=== PATIENT | female | born 1940 | race Caucasian/White ===

== ENCOUNTER 2018-05-18 11:34 | Outpatient (REF) | payer MEDICARE, SELFPAY ==
[2018-05-18 23:13] LABS: TSH (W/Ref FT4) 1.32 uIU/mL (0.358-3.74)
== END 2018-05-18 11:54 ==
LOC: NCHCN 11:34
PROVIDERS: PCP Family Medicine; Visit Provider Family Medicine
DX: E03.9 Hypothyroidism, unspecified (principal)
CPT/HCPCS: 84443

== ENCOUNTER 2019-02-28 11:14 | Outpatient (REF) | payer MEDICARE, SELFPAY ==
[2019-02-28 21:55] LABS: Calculated LDL 156; Cholesterol 239 mg/dL (50-200); HDL Cholesterol 34 mg/dL (40-60); Triglyceride 245 mg/dL (30-150)
== END 2019-02-28 11:34 ==
LOC: NCHCN 11:14
PROVIDERS: PCP Family Medicine; Visit Provider Family Medicine
DX: E78.5 Hyperlipidemia, unspecified (principal)
CPT/HCPCS: 80061; 83721

== ENCOUNTER 2019-10-06 13:00 | Outpatient (REF) | payer MEDICARE, SELFPAY ==
[2019-10-06 20:38] LABS: BUN 14 mg/dL (7-18); CREATININE 0.88 mg/dL (0.55-1.02); Calcium 9.1 mg/dL (8.5-10.1); Chloride 104 mmol/L (98-107); Glucose 74 mg/dL (74-106); Sodium 142 mmol/L (136-145); TSH 2.72 uIU/mL (0.36-3.74)
== END 2019-10-06 13:20 ==
LOC: NCHCN 13:00
PROVIDERS: PCP Family Medicine; Visit Provider Family Medicine
DX: E03.9 Hypothyroidism, unspecified (principal); I10 Essential (primary) hypertension
CPT/HCPCS: 80048; 84443

== ENCOUNTER 2020-11-06 22:32 | Outpatient (REF) | payer MEDICARE, OTHER, SELFPAY ==
[2020-11-06 22:23] LABS: BUN 20 mg/dL (7-18); Calcium 9.3 mg/dL (8.5-10.1); Calculated LDL 153 mg/dL (<100); Chloride 102 mmol/L (98-107); Cholesterol 237 mg/dL (<200); Estimated GFR 53.62 (mL/min/1.73m2); Glucose 86 mg/dL (74-106); HDL Cholesterol 33 mg/dL (40-60); Potassium 4.3 mmol/L (3.5-5.1); Sodium 141 mmol/L (136-145); TSH 3.08 uIU/mL (0.36-3.74); Triglyceride 259 mg/dL (<150)
== END 2020-11-06 22:33 | disposition home or self-care (01) ==
LOC: NCHCN 22:32
PROVIDERS: PCP Family Medicine; Visit Provider Internal Medicine
DX: E03.9 Hypothyroidism, unspecified (principal)
CPT/HCPCS: 80048; 80061; 84443

== ENCOUNTER 2021-03-27 16:11 | Outpatient (REF) | payer MEDICARE, OTHER, SELFPAY | END 2021-03-27 16:12 | disposition home or self-care (01) | LOC: NCHCN 16:11 | PROVIDERS: PCP Family Medicine; Visit Provider Nurse Practitioner Family | DX: R31.9 Hematuria, unspecified (principal) | CPT/HCPCS: 87086 ==

== ENCOUNTER 2022-02-24 10:11 | Outpatient (REF) | payer MEDICARE, OTHER, SELFPAY ==
[2022-02-24 15:42] LABS: TSH (W/Ref FT4) 1.84 uIU/mL (0.36-3.74)
== END 2022-02-24 10:12 | disposition home or self-care (01) ==
LOC: NCHCN 10:11
PROVIDERS: PCP Family Medicine; Visit Provider Nurse Practitioner Family
DX: E03.9 Hypothyroidism, unspecified (principal)
CPT/HCPCS: 84443

== ENCOUNTER 2022-12-21 12:53 | Outpatient (REF) | payer MEDICARE, SELFPAY ==
[2022-12-21 14:28] LABS: Abs Immature Grans 0.03 10^3/uL (0.0-0.06); Absolute Basophil Count 0.03 10^3/uL (0.0-0.2); Absolute Eosinophil Count 0.07 10^3/uL (0.0-0.7); Absolute Lymphocyte Count 1.47 10^3/uL (1.2-3.4); Absolute Monocyte Count 0.64 10^3/uL (0.1-0.8); Absolute Neutrophil Count 5.45 10^3/uL (1.2-6.7); Basophils % 0.4; Eosinophils % 0.9; HGB 13.3 g/dL (11.2-15.7); Immature Grans % 0.4; Lymphocytes % 19.1; MCH 30.6 pg (27.0-33.0); MCHC 32.4 % (32.0-36.0); MCV 94 fL (80-95); MPV 9.8 fL (8.0-11.0); Monocytes % 8.3; Neutrophils % 70.9; Platelet Count 195 10^3/uL (130-400); RBC 4.35 10^6/uL (3.93-5.22); RDW 12.1 % (11.7-14.6); RDW-SD 42.4 fL; WBC 7.69 10^3/uL (4.4-10.8)
[2022-12-21 14:36] LABS: ESR 17 mm/hr (0-30)
[2022-12-21 15:24] LABS: ALT 21 U/L (14-59); AST 23 U/L (15-37); Albumin 3.7 g/dL (3.4-5.0); Alkaline Phosphatase 91 U/L (46-116); Anion Gap 9.1 mmol/L (3-11); BUN 18 mg/dL (7-18); Bilirubin, Total 0.4 mg/dL (0.2-1.0); CO2 27.9 mmol/L (21.0-32.0); CREATININE 1.1 mg/dL (0.55-1.02); Calcium 9.2 mg/dL (8.5-10.1); Chloride 104 mmol/L (98-107); Glucose 117 mg/dL (74-106); Potassium 3.9 mmol/L (3.5-5.1); Sodium 141 mmol/L (136-145); TSH 2.79 uIU/mL (0.36-3.74); Total Protein 7.6 g/dL (6.4-8.2); Vitamin B12 524 pg/mL (193-986)
[2022-12-21 15:33] LABS: C-Reactive Protein 1.95 mg/dL (0.0-0.3)
== END 2022-12-21 12:54 | disposition home or self-care (01) ==
LOC: NCHCN 12:53
PROVIDERS: PCP Family Medicine; Visit Provider Internal Medicine
DX: G44.209 Tension-type headache, unspecified, not intractable (principal); I48.92 Unspecified atrial flutter; E03.9 Hypothyroidism, unspecified
CPT/HCPCS: 80053; 85652; 82607; 84443; 85025; 86140

== ENCOUNTER 2023-01-25 21:13 | Outpatient (REF) | payer MEDICARE, SELFPAY ==
[2023-01-25 15:15] LABS: ESR < 1 mm/hr (0-30)
== END 2023-01-25 21:14 | disposition home or self-care (01) ==
LOC: NCHCN 21:13
PROVIDERS: PCP Family Medicine; Visit Provider Internal Medicine
DX: M31.6 Other giant cell arteritis (principal)
CPT/HCPCS: 85652; 86140

== ENCOUNTER 2023-02-03 15:02 | Outpatient (REF) | payer MEDICARE, SELFPAY | END 2023-02-03 15:03 | disposition home or self-care (01) | LOC: NCHCN 15:02 | PROVIDERS: PCP Family Medicine; Visit Provider Internal Medicine | DX: R30.0 Dysuria (principal) | CPT/HCPCS: 87086 ==

== ENCOUNTER 2023-03-12 13:57 | Outpatient (REF) | payer MEDICARE, SELFPAY ==
[2023-03-12 21:09] LABS: ESR 6 mm/hr (0-30)
[2023-03-12 21:22] LABS: C-Reactive Protein 0.38 mg/dL (0.0-0.3)
== END 2023-03-12 13:58 | disposition home or self-care (01) ==
LOC: NCHCN 13:57
PROVIDERS: PCP Family Medicine; Visit Provider Internal Medicine
DX: M31.6 Other giant cell arteritis (principal)
CPT/HCPCS: 85652; 86140

== ENCOUNTER 2023-03-26 15:12 | Outpatient (REF) | payer MEDICARE, SELFPAY ==
[2023-03-26 14:44] LABS: HCT 33.9 % (36.0-46.0); HGB 11.2 g/dL (11.2-15.7); MCH 31.9 pg (27.0-33.0); MCV 97 fL (80-95); MPV 10.2 fL (8.0-11.0); Platelet Count 139 10^3/uL (130-400); RBC 3.51 10^6/uL (3.93-5.22); RDW 17.2 % (11.7-14.6); RDW-SD 59.8 fL; WBC 11.69 10^3/uL (4.4-10.8)
[2023-03-26 14:47] LABS: ESR 2 mm/hr (0-30)
[2023-03-26 15:19] LABS: C-Reactive Protein < 0.05 mg/dL (0.0-0.3)
[2023-03-26 15:46] LABS: Vitamin D 25 Total 24.6 ng/mL (30-100)
== END 2023-03-26 15:13 | disposition home or self-care (01) ==
LOC: NCHCN 15:12
PROVIDERS: PCP Family Medicine; Visit Provider Internal Medicine
DX: M31.6 Other giant cell arteritis (principal); M85.88 Other specified disorders of bone density and structure, other site
CPT/HCPCS: 82306; 85027; 85652; 86140

== ENCOUNTER 2023-04-16 10:49 | Outpatient (REF) | payer MEDICARE, SELFPAY ==
[2023-04-16 15:14] LABS: HCT 35.6 % (36.0-46.0); HGB 12.2 g/dL (11.2-15.7); MCH 33.7 pg (27.0-33.0); MCHC 34.3 % (32.0-36.0); MCV 98 fL (80-95); MPV 10.1 fL (8.0-11.0); Platelet Count 139 10^3/uL (130-400); RBC 3.62 10^6/uL (3.93-5.22); RDW 16.2 % (11.7-14.6); RDW-SD 58.6 fL; WBC 11.88 10^3/uL (4.4-10.8)
[2023-04-16 15:28] LABS: ESR 6 mm/hr (0-30)
[2023-04-16 15:35] LABS: C-Reactive Protein 0.18 mg/dL (0.0-0.3)
== END 2023-04-16 10:50 | disposition home or self-care (01) ==
LOC: NCHCN 10:49
PROVIDERS: PCP Family Medicine; Visit Provider Internal Medicine
DX: M31.6 Other giant cell arteritis (principal)
CPT/HCPCS: 85027; 85652; 86140

== ENCOUNTER 2023-05-18 18:21 | Outpatient (REF) | payer SELFPAY ==
[2023-05-18 15:46] LABS: Abs Immature Grans 0.72 10^3/uL (0.0-0.06); Absolute Lymphocyte Count 1.29 10^3/uL (1.2-3.4); Absolute Neutrophil Count 13.72 10^3/uL (1.2-6.7); Basophils % 0.2; HCT 31.1 % (36.0-46.0); HGB 9.7 g/dL (11.2-15.7); Immature Grans % 4.3; Lymphocytes % 7.7; MCH 33.1 pg (27.0-33.0); MCHC 31.2 % (32.0-36.0); MCV 106 fL (80-95); MPV 9.2 fL (8.0-11.0); Monocytes % 5.9; Neutrophils % 81.9; Nucleated RBC 0.4 % (0.0-0.3); Platelet Count 205 10^3/uL (130-400); RBC 2.93 10^6/uL (3.93-5.22); RDW 16.1 % (11.7-14.6); RDW-SD 62.9 fL; WBC 16.75 10^3/uL (4.4-10.8)
[2023-05-18 16:40] LABS: Absolute Basophil Count 0.03 10^3/uL (0.0-0.2); Absolute Monocyte Count 0.99 10^3/uL (0.1-0.8); ESR 2 mm/hr (0-30)
[2023-05-18 17:00] LABS: Anisocytosis 1+; Diff Comment Diff Reviewed; Macrocytosis 1+
[2023-05-18 17:26] LABS: ALT 47 U/L (14-59); AST 23 U/L (15-37); Albumin 3.1 g/dL (3.4-5.0); Alkaline Phosphatase 97 U/L (46-116); Anion Gap 8.6 mmol/L (3-11); BUN 34 mg/dL (7-18); Bilirubin, Total 0.3 mg/dL (0.2-1.0); C-Reactive Protein 0.14 mg/dL (0.0-0.3); CO2 25.4 mmol/L (21.0-32.0); CREATININE 1.3 mg/dL (0.55-1.02); Calcium 8.5 mg/dL (8.5-10.1); Chloride 104 mmol/L (98-107); Estimated GFR 41.57 (mL/min/1.73m2); Glucose 121 mg/dL (74-106); Potassium 4.2 mmol/L (3.5-5.1); Sodium 138 mmol/L (136-145); TSH 2.39 uIU/mL (0.36-3.74); Total Protein 5.6 g/dL (6.4-8.2)
== END 2023-05-18 18:22 | disposition home or self-care (01) ==
LOC: LBN 18:21
PROVIDERS: PCP Family Medicine; Visit Provider Internal Medicine
DX: M31.6 Other giant cell arteritis (principal); R62.7 Adult failure to thrive; E03.9 Hypothyroidism, unspecified; I48.91 Unspecified atrial fibrillation; G04.90 Encephalitis and encephalomyelitis, unspecified; I10 Essential (primary) hypertension
CPT/HCPCS: 80053; 85652; 84443; 85025; 86140

== ENCOUNTER 2023-05-27 15:49 | Outpatient (REF) | payer SELFPAY ==
[2023-05-27 16:29] LABS: C-Reactive Protein 0.15 mg/dL (0.0-0.3); TSH 3.13 uIU/mL (0.36-3.74)
[2023-05-27 16:35] LABS: ESR < 1 mm/hr (0-30)
== END 2023-05-27 15:50 | disposition home or self-care (01) ==
LOC: LBN 15:49
PROVIDERS: PCP Family Medicine; Visit Provider Internal Medicine
DX: E03.9 Hypothyroidism, unspecified (principal); I48.91 Unspecified atrial fibrillation; R62.7 Adult failure to thrive; M31.6 Other giant cell arteritis
CPT/HCPCS: 85652; 84443; 86140

== ENCOUNTER 2023-06-14 21:59 | Outpatient (REF) | payer MEDICARE, SELFPAY ==
[2023-06-15 01:20] LABS: Abs Immature Grans 0.23 10^3/uL (0.0-0.06); Absolute Basophil Count 0.04 10^3/uL (0.0-0.2); Absolute Eosinophil Count 0.02 10^3/uL (0.0-0.7); Absolute Lymphocyte Count 1.55 10^3/uL (1.2-3.4); Absolute Monocyte Count 0.65 10^3/uL (0.1-0.8); Basophils % 0.8; Eosinophils % 0.4; HCT 37.8 % (36.0-46.0); HGB 12.4 g/dL (11.2-15.7); Immature Grans % 4.3; Lymphocytes % 29.3; MCH 34.6 pg (27.0-33.0); MCHC 32.8 % (32.0-36.0); MCV 106 fL (80-95); MPV 11.3 fL (8.0-11.0); Monocytes % 12.3; Neutrophils % 52.9; Nucleated RBC 0.9 % (0.0-0.3); Platelet Count 131 10^3/uL (130-400); RBC 3.58 10^6/uL (3.93-5.22); RDW 14.5 % (11.7-14.6); RDW-SD 57.1 fL; WBC 5.29 10^3/uL (4.4-10.8)
[2023-06-15 01:29] LABS: C-Reactive Protein 0.11 mg/dL (0.0-0.3)
[2023-06-15 01:43] LABS: Diff Comment RBC Morph Reviewed; Macrocytosis 2+
[2023-06-15 01:49] LABS: Polychromasia Present
[2023-06-15 10:53] LABS: ESR (LRH) 1 mm/hr
== END 2023-06-14 22:00 | disposition home or self-care (01) ==
LOC: NCHCN 21:59
PROVIDERS: PCP Family Medicine; Visit Provider Internal Medicine
DX: M31.6 Other giant cell arteritis (principal); I10 Essential (primary) hypertension; E03.9 Hypothyroidism, unspecified
CPT/HCPCS: 85652; 85025; 86140

== ENCOUNTER 2023-06-29 15:26 | Outpatient (REF) | payer MEDICARE, SELFPAY ==
[2023-06-29 16:03] LABS: HCT 34.9 % (36.0-46.0); HGB 11.4 g/dL (11.2-15.7); MCH 33.1 pg (27.0-33.0); MCHC 32.7 % (32.0-36.0); MCV 102 fL (80-95); MPV 9.6 fL (8.0-11.0); Platelet Count 103 10^3/uL (130-400); RBC 3.44 10^6/uL (3.93-5.22); RDW 14.5 % (11.7-14.6); RDW-SD 53.6 fL; WBC 2.77 10^3/uL (4.4-10.8)
[2023-06-29 16:19] LABS: C-Reactive Protein < 0.05 mg/dL (0.0-0.3)
[2023-06-29 16:51] LABS: Absolute Eosinophil Count 0.03 10^3/uL (0.0-0.7); Absolute Lymphocyte Count 1.16 10^3/uL (1.2-3.4); Absolute Monocyte Count 0.55 10^3/uL (0.1-0.8); Absolute Neutrophil Count 0.97 10^3/uL (1.2-6.7); Atypical Lymphocytes % 7
[2023-06-29 16:52] LABS: Diff Comment Manual Differential; Macrocytosis 1+; Myelocytes % 2
[2023-06-30 13:55] LABS: ESR (LRH) < 1 mm/hr
== END 2023-06-29 15:27 | disposition home or self-care (01) ==
LOC: LBN 15:26
PROVIDERS: PCP Family Medicine; Visit Provider Internal Medicine
DX: M31.6 Other giant cell arteritis (principal)
CPT/HCPCS: 85652; 85025; 86140

== ENCOUNTER 2023-07-12 14:39 | Outpatient (REF) | payer SELFPAY ==
[2023-07-12 15:46] LABS: Abs Immature Grans 0.17 10^3/uL (0.0-0.06); Absolute Basophil Count 0.04 10^3/uL (0.0-0.2); Absolute Eosinophil Count 0.08 10^3/uL (0.0-0.7); Absolute Lymphocyte Count 1.43 10^3/uL (1.2-3.4); Absolute Monocyte Count 0.56 10^3/uL (0.1-0.8); Absolute Neutrophil Count 1.12 10^3/uL (1.2-6.7); Basophils % 1.2; Eosinophils % 2.4; HCT 37.6 % (36.0-46.0); HGB 12.3 g/dL (11.2-15.7); Lymphocytes % 42.1; MCH 33.5 pg (27.0-33.0); MCHC 32.7 % (32.0-36.0); MCV 103 fL (80-95); MPV 10.3 fL (8.0-11.0); Monocytes % 16.5; Neutrophils % 32.8; Nucleated RBC 0.6 % (0.0-0.3); Platelet Count 117 10^3/uL (130-400); RBC 3.67 10^6/uL (3.93-5.22); RDW 14.9 % (11.7-14.6); RDW-SD 56.2 fL
[2023-07-12 15:53] LABS: ESR < 1 mm/hr (0-30)
== END 2023-07-12 14:40 | disposition home or self-care (01) ==
LOC: NCHCN 14:39
PROVIDERS: PCP Family Medicine; Visit Provider Internal Medicine
DX: M31.6 Other giant cell arteritis (principal); G04.90 Encephalitis and encephalomyelitis, unspecified
CPT/HCPCS: 85652; 85025

== ENCOUNTER 2023-07-27 15:20 | Outpatient (REF) | payer SELFPAY ==
[2023-07-27 16:25] LABS: Abs Immature Grans 0.06 10^3/uL (0.0-0.06); Absolute Basophil Count 0.03 10^3/uL (0.0-0.2); Absolute Eosinophil Count 0.05 10^3/uL (0.0-0.7); Absolute Lymphocyte Count 1.21 10^3/uL (1.2-3.4); Absolute Monocyte Count 0.58 10^3/uL (0.1-0.8); Absolute Neutrophil Count 1.63 10^3/uL (1.2-6.7); Basophils % 0.8; Eosinophils % 1.4; HGB 10.8 g/dL (11.2-15.7); Immature Grans % 1.7; MCH 33.3 pg (27.0-33.0); MCHC 31.8 % (32.0-36.0); MCV 105 fL (80-95); MPV 9.4 fL (8.0-11.0); Monocytes % 16.3; Neutrophils % 45.8; Platelet Count 107 10^3/uL (130-400); RBC 3.24 10^6/uL (3.93-5.22); RDW-SD 57.8 fL; WBC 3.56 10^3/uL (4.4-10.8)
[2023-07-27 16:37] LABS: C-Reactive Protein < 0.05 mg/dL (0.0-0.3)
[2023-07-27 16:40] LABS: ESR < 1 mm/hr (0-30)
== END 2023-07-27 15:21 | disposition home or self-care (01) ==
LOC: LBN 15:20
PROVIDERS: PCP Family Medicine; Visit Provider Internal Medicine
DX: M31.6 Other giant cell arteritis (principal); G04.90 Encephalitis and encephalomyelitis, unspecified
CPT/HCPCS: 85652; 85025; 86140

== ENCOUNTER 2023-08-10 17:47 | Outpatient (REF) | payer SELFPAY ==
[2023-08-10 15:06] LABS: Abs Immature Grans 0.04 10^3/uL (0.0-0.06); Absolute Basophil Count 0.03 10^3/uL (0.0-0.2); Absolute Eosinophil Count 0.04 10^3/uL (0.0-0.7); Absolute Lymphocyte Count 0.71 10^3/uL (1.2-3.4); Absolute Monocyte Count 0.39 10^3/uL (0.1-0.8); Absolute Neutrophil Count 2.61 10^3/uL (1.2-6.7); Basophils % 0.8; HCT 34.5 % (36.0-46.0); HGB 11.1 g/dL (11.2-15.7); Lymphocytes % 18.6; MCH 33.6 pg (27.0-33.0); MCHC 32.2 % (32.0-36.0); MCV 105 fL (80-95); MPV 9.8 fL (8.0-11.0); Monocytes % 10.2; Neutrophils % 68.4; Platelet Count 111 10^3/uL (130-400); RDW 14.3 % (11.7-14.6); RDW-SD 55.4 fL; WBC 3.82 10^3/uL (4.4-10.8)
[2023-08-10 15:07] LABS: C-Reactive Protein < 0.05 mg/dL (0.0-0.3)
[2023-08-10 15:15] LABS: ESR < 1 mm/hr (0-30)
== END 2023-08-10 17:48 | disposition home or self-care (01) ==
LOC: NCHCN 17:47
PROVIDERS: PCP Family Medicine; Visit Provider Internal Medicine
DX: M31.6 Other giant cell arteritis (principal); G04.90 Encephalitis and encephalomyelitis, unspecified
CPT/HCPCS: 85652; 85025; 86140

== ENCOUNTER 2023-08-23 16:40 | Outpatient (REF) | payer SELFPAY ==
[2023-08-23 17:28] LABS: Abs Immature Grans 0.05 10^3/uL (0.0-0.06); Absolute Basophil Count 0.03 10^3/uL (0.0-0.2); Absolute Eosinophil Count 0.08 10^3/uL (0.0-0.7); Absolute Lymphocyte Count 1.57 10^3/uL (1.2-3.4); Absolute Monocyte Count 0.51 10^3/uL (0.1-0.8); Absolute Neutrophil Count 1.24 10^3/uL (1.2-6.7); Basophils % 0.9; Eosinophils % 2.3; HCT 36.7 % (36.0-46.0); HGB 11.8 g/dL (11.2-15.7); Immature Grans % 1.4; Lymphocytes % 45.1; MCH 33.4 pg (27.0-33.0); MCHC 32.2 % (32.0-36.0); MCV 104 fL (80-95); MPV 10.5 fL (8.0-11.0); Monocytes % 14.7; Neutrophils % 35.6; Platelet Count 104 10^3/uL (130-400); RBC 3.53 10^6/uL (3.93-5.22); RDW 13.9 % (11.7-14.6); RDW-SD 53.1 fL; WBC 3.48 10^3/uL (4.4-10.8)
[2023-08-23 17:33] LABS: ESR < 1 mm/hr (0-30)
[2023-08-23 17:39] LABS: C-Reactive Protein < 0.05 mg/dL (0.0-0.3)
== END 2023-08-23 16:41 | disposition home or self-care (01) ==
LOC: LBN 16:40
PROVIDERS: PCP Family Medicine; Visit Provider Internal Medicine
DX: M31.6 Other giant cell arteritis (principal)
CPT/HCPCS: 85652; 83036; 85025; 86140

== ENCOUNTER 2023-09-09 14:47 | Outpatient (REF) | payer MEDICARE, SELFPAY ==
[2023-09-09 22:24] LABS: Abs Immature Grans 0.03 10^3/uL (0.0-0.06); Absolute Basophil Count 0.01 10^3/uL (0.0-0.2); Absolute Eosinophil Count 0.02 10^3/uL (0.0-0.7); Absolute Lymphocyte Count 0.73 10^3/uL (1.2-3.4); Absolute Monocyte Count 0.36 10^3/uL (0.1-0.8); Absolute Neutrophil Count 2.13 10^3/uL (1.2-6.7); Basophils % 0.3; Eosinophils % 0.6; HCT 32.5 % (36.0-46.0); HGB 10.4 g/dL (11.2-15.7); Immature Grans % 0.9; Lymphocytes % 22.3; MCH 34.1 pg (27.0-33.0); MCV 107 fL (80-95); MPV 10.5 fL (8.0-11.0); Neutrophils % 64.9; Platelet Count 118 10^3/uL (130-400); RBC 3.05 10^6/uL (3.93-5.22); RDW 13.2 % (11.7-14.6); RDW-SD 51.3 fL; WBC 3.28 10^3/uL (4.4-10.8)
[2023-09-09 22:29] LABS: ESR < 1 mm/hr (0-30)
[2023-09-09 22:35] LABS: Macrocytosis 1+
[2023-09-09 22:42] LABS: C-Reactive Protein < 0.05 mg/dL (0.0-0.3)
== END 2023-09-09 14:48 | disposition home or self-care (01) ==
LOC: LBN 14:47
PROVIDERS: PCP Family Medicine; Visit Provider Internal Medicine
DX: M31.6 Other giant cell arteritis (principal); G04.90 Encephalitis and encephalomyelitis, unspecified
CPT/HCPCS: 85652; 85025; 86140

== ENCOUNTER 2023-09-22 20:56 | Outpatient (REF) | payer MEDICARE, SELFPAY ==
[2023-09-22 21:41] LABS: Abs Immature Grans 0.01 10^3/uL (0.0-0.06); Absolute Basophil Count 0.03 10^3/uL (0.0-0.2); Absolute Eosinophil Count 0.03 10^3/uL (0.0-0.7); Absolute Lymphocyte Count 0.81 10^3/uL (1.2-3.4); Absolute Monocyte Count 0.42 10^3/uL (0.1-0.8); Basophils % 0.7; Eosinophils % 0.7; HCT 34.8 % (36.0-46.0); HGB 11.5 g/dL (11.2-15.7); Immature Grans % 0.2; Lymphocytes % 18.8; MCH 34.5 pg (27.0-33.0); MCV 105 fL (80-95); MPV 10.3 fL (8.0-11.0); Monocytes % 9.8; Neutrophils % 69.8; Platelet Count 125 10^3/uL (130-400); RBC 3.33 10^6/uL (3.93-5.22); RDW 12.5 % (11.7-14.6); RDW-SD 48.6 fL
[2023-09-22 21:54] LABS: ESR < 1 mm/hr (0-30)
[2023-09-22 22:31] LABS: ALT 37 U/L (14-59); AST 25 U/L (15-37); Albumin 3.7 g/dL (3.4-5.0); Alkaline Phosphatase 65 U/L (46-116); Anion Gap 9.7 mmol/L (3-11); BUN 17 mg/dL (7-18); Bilirubin, Total 0.5 mg/dL (0.2-1.0); CO2 26.3 mmol/L (21.0-32.0); CREATININE 1.3 mg/dL (0.55-1.02); Chloride 107 mmol/L (98-107); Estimated GFR 41.31 (mL/min/1.73m2); Glucose 123 mg/dL (74-106); Potassium 4.1 mmol/L (3.5-5.1); Sodium 143 mmol/L (136-145); TSH 1.85 uIU/mL (0.36-3.74); Total Protein 5.8 g/dL (6.4-8.2)
[2023-09-22 22:32] LABS: C-Reactive Protein < 0.05 mg/dL (0.0-0.3)
== END 2023-09-22 20:57 | disposition home or self-care (01) ==
LOC: NCHCN 20:56
PROVIDERS: PCP Family Medicine; Visit Provider Internal Medicine
DX: E78.5 Hyperlipidemia, unspecified (principal); M31.6 Other giant cell arteritis
CPT/HCPCS: 80053; 85652; 84443; 85025; 86140

== ENCOUNTER 2023-10-05 21:24 | Outpatient (REF) | payer MEDICARE, SELFPAY ==
[2023-10-05 22:06] LABS: Abs Immature Grans 0.02 10^3/uL (0.0-0.06); Absolute Basophil Count 0.03 10^3/uL (0.0-0.2); Absolute Eosinophil Count 0.04 10^3/uL (0.0-0.7); Absolute Lymphocyte Count 0.86 10^3/uL (1.2-3.4); Absolute Monocyte Count 0.61 10^3/uL (0.1-0.8); Absolute Neutrophil Count 3.07 10^3/uL (1.2-6.7); Basophils % 0.6; Eosinophils % 0.9; HCT 35.4 % (36.0-46.0); HGB 11.2 g/dL (11.2-15.7); Immature Grans % 0.4; Lymphocytes % 18.6; MCH 34.1 pg (27.0-33.0); MCHC 31.6 % (32.0-36.0); MCV 108 fL (80-95); MPV 11.2 fL (8.0-11.0); Monocytes % 13.2; Neutrophils % 66.3; Platelet Count 138 10^3/uL (130-400); RBC 3.28 10^6/uL (3.93-5.22); RDW-SD 47.6 fL; WBC 4.63 10^3/uL (4.4-10.8)
[2023-10-05 22:28] LABS: C-Reactive Protein 0.05 mg/dL (0.0-0.3)
== END 2023-10-05 21:25 | disposition home or self-care (01) ==
LOC: LBN 21:24
PROVIDERS: PCP Family Medicine; Visit Provider Internal Medicine
DX: M31.6 Other giant cell arteritis (principal); R62.7 Adult failure to thrive; E03.9 Hypothyroidism, unspecified; I10 Essential (primary) hypertension
CPT/HCPCS: 85652; 85025; 86140

== ENCOUNTER 2023-10-06 20:45 | Outpatient (REF) | payer MEDICARE, SELFPAY ==
[2023-10-06 22:14] LABS: ESR < 1 mm/hr (0-30)
== END 2023-10-06 20:46 | disposition home or self-care (01) ==
LOC: NCHCN 20:45
PROVIDERS: PCP Family Medicine; Visit Provider Internal Medicine
DX: M31.6 Other giant cell arteritis (principal); R62.7 Adult failure to thrive; I10 Essential (primary) hypertension; E03.9 Hypothyroidism, unspecified
CPT/HCPCS: 85652

== ENCOUNTER 2023-10-20 15:37 | Outpatient (REF) | payer MEDICARE, SELFPAY ==
[2023-10-20 15:06] LABS: Abs Immature Grans 0.02 10^3/uL (0.0-0.06); Absolute Basophil Count 0.02 10^3/uL (0.0-0.2); Absolute Eosinophil Count 0.03 10^3/uL (0.0-0.7); Absolute Lymphocyte Count 1.01 10^3/uL (1.2-3.4); Absolute Monocyte Count 0.65 10^3/uL (0.1-0.8); Absolute Neutrophil Count 1.83 10^3/uL (1.2-6.7); Basophils % 0.6; Eosinophils % 0.8; HCT 34.3 % (36.0-46.0); HGB 11.3 g/dL (11.2-15.7); Immature Grans % 0.6; Lymphocytes % 28.4; MCHC 32.9 % (32.0-36.0); MCV 103 fL (80-95); MPV 9.8 fL (8.0-11.0); Monocytes % 18.3; Neutrophils % 51.3; Platelet Count 118 10^3/uL (130-400); RBC 3.32 10^6/uL (3.93-5.22); RDW 12.1 % (11.7-14.6); WBC 3.56 10^3/uL (4.4-10.8)
[2023-10-20 15:14] LABS: ESR < 1 mm/hr (0-30)
[2023-10-20 16:22] LABS: ALT 35 U/L (14-59); AST 22 U/L (15-37); Albumin 3.2 g/dL (3.4-5.0); Alkaline Phosphatase 43 U/L (46-116); Anion Gap 11.2 mmol/L (3-11); BUN 16 mg/dL (7-18); Bilirubin, Total 0.4 mg/dL (0.2-1.0); CO2 27.8 mmol/L (21.0-32.0); CREATININE 1.2 mg/dL (0.55-1.02); Chloride 107 mmol/L (98-107); Estimated GFR 45.48 (mL/min/1.73m2); Glucose 114 mg/dL (74-106); Potassium 3.8 mmol/L (3.5-5.1); Sodium 146 mmol/L (136-145); Total Protein 5.1 g/dL (6.4-8.2); Vitamin B12 468 pg/mL (193-986)
[2023-10-20 16:39] LABS: C-Reactive Protein < 0.50 mg/dL (<or=0.5)
[2023-10-20 21:52] LABS: Bilirubin Negative (Negative); Blood Trace-intact (Negative); Clarity Clear (Clear); Glucose Negative (Negative); Ketones Negative (Negative); Leukocyte Esterase Negative (Negative); Nitrite Negative (Negative); Specific Gravity 1.025 (1.005-1.025); Urobilinogen 0.2 mg/dL (Up to 0.2)
[2023-10-20 22:02] LABS: Bacteria Negative HPF (Negative); C & S Indicated? No; Crystals Rare Calcium Oxalate HPF (Negative); Epithelial Cells Rare HPF (Negative); Mucus Heavy (Negative); Other Cells Negative (Negative); WBC Negative HPF (0-5)
== END 2023-10-20 15:38 | disposition home or self-care (01) ==
LOC: NCHCN 15:37
PROVIDERS: PCP Family Medicine; Visit Provider Internal Medicine
DX: N39.0 Urinary tract infection, site not specified (principal); R62.7 Adult failure to thrive; M31.6 Other giant cell arteritis
CPT/HCPCS: 80053; 85652; 81003; 81015; 82607; 82746; 85025; 86140

== ENCOUNTER 2023-11-04 14:43 | Outpatient (REF) | payer MEDICARE, SELFPAY ==
[2023-11-04 14:54] LABS: Abs Immature Grans 0.01 10^3/uL (0.0-0.06); Absolute Basophil Count 0.03 10^3/uL (0.0-0.2); Absolute Eosinophil Count 0.05 10^3/uL (0.0-0.7); Absolute Lymphocyte Count 0.65 10^3/uL (1.2-3.4); Absolute Neutrophil Count 2.07 10^3/uL (1.2-6.7); Basophils % 0.9; Eosinophils % 1.5; HCT 35.1 % (36.0-46.0); HGB 11.6 g/dL (11.2-15.7); Immature Grans % 0.3; Lymphocytes % 19.6; MCH 33.9 pg (27.0-33.0); MCV 103 fL (80-95); MPV 9.4 fL (8.0-11.0); Monocytes % 15.1; Neutrophils % 62.6; Platelet Count 110 10^3/uL (130-400); RBC 3.42 10^6/uL (3.93-5.22); RDW 12.3 % (11.7-14.6); RDW-SD 46.6 fL; WBC 3.31 10^3/uL (4.4-10.8)
[2023-11-04 15:05] LABS: ESR < 1 mm/hr (0-30)
[2023-11-04 15:16] LABS: C-Reactive Protein < 0.50 mg/dL (<or=0.5)
== END 2023-11-04 14:44 | disposition home or self-care (01) ==
LOC: LBN 14:43
PROVIDERS: PCP Family Medicine; Referring Provider Internal Medicine; Visit Provider Internal Medicine
DX: M31.6 Other giant cell arteritis (principal)
CPT/HCPCS: 85652; 85025; 86140